=== PATIENT | male | born 1980 | race Two or more races ===

== ENCOUNTER 2020-03-02 07:52 | Emergency (ER) | payer MEDICAID, MEDICARE ==
[~2020-03-02] VITALS: Ht 170.2 cm; Wt 82.0 kg
[2020-03-02 07:53] VITALS: BP 118/52
[2020-03-02] MEDS ORDERED: CYCLOBENZAPRINE 10MG TABLET PO ONE (10:00)
[2020-03-02] MEDS ORDERED: KETOROLAC 60MG/2ML VIAL IM ONE (10:00)
== END 2020-03-02 10:44 | disposition home or self-care (01) ==
LOC: ER 07:52
DX: M54.5 Low back pain (principal)
CPT/HCPCS: 96372; 99283; J1885

== ENCOUNTER 2020-11-20 08:55 | Emergency (ER) | payer MEDICARE ==
[~2020-11-20] VITALS: Ht 180.3 cm; Wt 79.0 kg
[2020-11-20] MEDS ORDERED: ACETAMINOPHEN WITH CODEINE 300/30MG TABLET PO ONE (09:45)
[2020-11-20] MEDS ORDERED: FLUORESCEIN SODIUM 1MG/STRIP LEFTEYE ONE (10:00)
[2020-11-20] MEDS ORDERED: TETRACAINE 0.5% OPHTH DROPS 4ML LEFTEYE ONE (10:00)
[2020-11-20] MEDS ORDERED: LATANOPROST 0.005% OPHTH DROPS 2.5ML BOTHEYE STA (10:55)
[2020-11-20] MEDS ORDERED: BRIMONIDINE 0.2% OPHTH DROPS 5ML BOTHEYE ONE (11:00)
[2020-11-20] MEDS ORDERED: T3 PO (11:27)
[2020-11-20] MEDS ORDERED: IBUP-2028 PO (11:27)
[2020-11-20 12:21] VITALS: BP 157/81
== END 2020-11-20 12:21 | disposition home or self-care (01) ==
LOC: ER 08:55
DX: S22.42XA Multiple fractures of ribs, left side, initial encounter for closed fracture (principal); S00.83XA Contusion of other part of head, initial encounter; S20.219A Contusion of unspecified front wall of thorax, initial encounter; Y04.8XXA Assault by other bodily force, initial encounter; Y93.89 Activity, other specified; Y92.89 Other specified places as the place of occurrence of the external cause; H40.9 Unspecified glaucoma; Z91.14 Patient's other noncompliance with medication regimen
CPT/HCPCS: 70486; 71100; 74176; 99285

== ENCOUNTER 2021-09-01 16:27 | Emergency (ER) | payer MEDICARE ==
[~2021-09-01] VITALS: Ht 180.3 cm; Wt 79.0 kg
[~2021-09-01 16:27] MED LIST: IBUP-2028 PO; T3 PO
[2021-09-01] MEDS ORDERED: KETOROLAC 60MG/2ML VIAL IM ONE (19:00)
[2021-09-01] MEDS ORDERED: DEXAMETHASONE 10 MG/ML VIAL IV ONE (19:00)
[2021-09-01] MEDS ORDERED: HYDROCODONE/ACETAMINOPHEN 5/325MG TABLET PO ONE (19:00)
[2021-09-01] MEDS ORDERED: METH4TAB3 MT (19:25)
[2021-09-01] MEDS ORDERED: HYDR-4001 MT (19:25)
[2021-09-01] MEDS ORDERED: IBUP-2029 MT (19:25)
[2021-09-01] MEDS ORDERED: LIDO700A15 TP (19:25)
[2021-09-01] MEDS ORDERED: BACL-141 MT (19:25)
[2021-09-01 20:07] VITALS: BP 109/55
== END 2021-09-01 20:12 | disposition home or self-care (01) ==
LOC: ER 16:27
DX: M54.41 Lumbago with sciatica, right side (principal); F17.210 Nicotine dependence, cigarettes, uncomplicated; Z71.6 Tobacco abuse counseling
CPT/HCPCS: 96372; 99283; 99406; J1100; J1885

== ENCOUNTER 2023-12-31 10:48 | Emergency (ER) | payer MEDICAID, MEDICARE, OTHER ==
[~2023-12-31] VITALS: Ht 177.8 cm; Wt 87.0 kg
[~2023-12-31 10:48] MED LIST changes: +BACL-141 MT; +HYDR-4001 MT; +IBUP-2029 MT; +LIDO700A15 TP; +METH4TAB3 MT
[2023-12-31 10:58] VITALS: BP 116/73; PULSE 67; RESP 16; TEMP 98.3; O2SAT 98
[2023-12-31] MEDS ORDERED: CARB15DR63 LEFT EAR (13:19)
== END 2023-12-31 15:19 | disposition home or self-care (01) ==
LOC: ER 10:48
DX: H61.22 Impacted cerumen, left ear (principal)
CPT/HCPCS: 69210; 99282; Z7610